=== PATIENT | female | born 1955 | race Caucasian/White ===

== ENCOUNTER 2022-03-13 06:50 | Day surgery (SDC) | payer BC, MEDICARE, OTHER ==
[2022-03-13] MEDS ORDERED: Sodium Chloride 0.9% 10 ML Syringe FLUSH PRN (07:00)
[2022-03-13] MEDS: Lactated Ringers 1,000 ML IV SCH (07:43)
[2022-03-13] MEDS ORDERED: fentaNYL 100 MCG/2 ML SDV ONE (08:10)
[2022-03-13] MEDS ORDERED: Propofol 200 MG/20 ML SDV ONE ×3 (08:10→09:29)
[2022-03-13] MEDS ORDERED: Ondansetron 4 MG/2 ML SDV ONE (09:09)
== END 2022-03-13 11:25 | disposition home or self-care (01) ==
LOC: VM.SDS 06:50
PROVIDERS: ATTEND Family Medicine
DX: K62.89 Other specified diseases of anus and rectum (principal); K57.30 Diverticulosis of large intestine without perforation or abscess without bleeding; I10 Essential (primary) hypertension; E78.2 Mixed hyperlipidemia; E66.9 Obesity, unspecified; M53.3 Sacrococcygeal disorders, not elsewhere classified; G89.29 Other chronic pain; G43.909 Migraine, unspecified, not intractable, without status migrainosus; Z88.8 Allergy status to other drugs, medicaments and biological substances; Z79.899 Other long term (current) drug therapy; Z79.84 Long term (current) use of oral hypoglycemic drugs; Z68.41 Body mass index [BMI] 40.0-44.9, adult
CPT/HCPCS: 00811; 88305; J2405; J2704; J3010; J7120